=== PATIENT | male | born 1960 | race Caucasian/White ===

== ENCOUNTER → 2023-12-30 11:06 | Outpatient (REF) | payer OTHER, SELFPAY | LOC: HWRAD 11:06 | PROVIDERS: ATTENDING PHYSICIAN Orthopaedic Surgery; FAMILY PHYSICIAN Family Medicine | DX: M25.571 Pain in right ankle and joints of right foot (principal); M79.671 Pain in right foot | CPT/HCPCS: 73700 ==

== ENCOUNTER → 2024-01-20 15:43 | Outpatient (REF) | payer OTHER, SELFPAY | LOC: PAVMRI 15:43 | PROVIDERS: ATTENDING PHYSICIAN Student in an Organized Health Care Education/Training Program; FAMILY PHYSICIAN Family Medicine | DX: M25.571 Pain in right ankle and joints of right foot (principal) | CPT/HCPCS: 73721 ==

== ENCOUNTER → 2024-04-27 13:01 | Outpatient (REF) | payer OTHER, SELFPAY | LOC: RCS 13:01 | PROVIDERS: ATTENDING PHYSICIAN Physician Assistant | DX: R53.83 Other fatigue (principal); R42 Dizziness and giddiness; Z68.29 Body mass index [BMI] 29.0-29.9, adult; E78.2 Mixed hyperlipidemia | CPT/HCPCS: 93017; 93350 ==

== ENCOUNTER 2024-05-08 06:30 | Day surgery (SDC) | payer OTHER, SELFPAY ==
[2024-04-25 08:18] VITALS: BMI 29.4
[2024-04-25 09:56] LABS: Blood Urea Nitrogen 11 mg/dl (9-20); Calcium 10.2 mg/dl (8.4-10.2); Carbon Dioxide 26 mmol/L (22-30); Chloride 101 mmol/L (98-107); Estimated Creatinine Clearance 100 ml/min; Glucose 92 mg/dl (70-99); Potassium 4.1 mmol/L (3.5-5.1); Sodium 136 mmol/L (135-145); eGFR > 60.00
[2024-04-25 09:59] LABS: Hematocrit 43.1 % (39.0-52.0); Hemoglobin 14.8 g/dL (13.0-18.0); Mean Corp Hgb Conc. 34.3 g/dL (33.0-37.0); Mean Corpuscular Hgb 30.8 pg (27.0-31.0); Mean Corpuscular Volume 89.6 fL (80.0-94.0); Mean Platelet Volume 9.6 fL (7.4-10.4); Platelet Count 197 10^3/uL (130-400); Red Blood Cell Count 4.81 10^6/uL (4.70-6.10); Red Cell Dist. Width 12.4 % (11.5-14.5); White Blood Cell Count 5.2 10^3/uL (4.8-10.8)
[2024-05-08] VITALS (12 sets, daily range): BP systolic 131–140; BP diastolic 75–90; BMI 29.4
[2024-05-08] MEDS: NORMOSOL-R/PLASMALYTE-A 1000 IV (09:48)
[2024-05-08] MEDS: TYLENOL 1000 MG PO (09:51)
[2024-05-08] MEDS: CELEBREX 200 MG PO (09:51)
[2024-05-08] MEDS: DILAUDID 0.25 MG IV ×2 (14:07→14:21)
[2024-05-08] MEDS: TYLENOL 650 MG PO (15:54)
[2024-05-08] MEDS: ROXICODONE 5 MG PO (15:54)
== END 2024-05-08 16:10 | disposition home or self-care (01) ==
LOC: SDS 06:30
PROVIDERS: ATTENDING PHYSICIAN Student in an Organized Health Care Education/Training Program; FAMILY PHYSICIAN Family Medicine
DX: M67.01 Short Achilles tendon (acquired), right ankle (principal); M89.8X9 Other specified disorders of bone, unspecified site; D16.31 Benign neoplasm of short bones of right lower limb; M76.71 Peroneal tendinitis, right leg
CPT/HCPCS: 27691; 27659; 28120; 36415; 80048; 85027; 93005

== ENCOUNTER → 2024-10-27 16:15 | Outpatient (REF) | payer OTHER, SELFPAY | LOC: RAD 16:15 | PROVIDERS: ATTENDING PHYSICIAN Nurse Practitioner Family | DX: R10.9 Unspecified abdominal pain (principal) | CPT/HCPCS: 74176 ==

== ENCOUNTER → 2025-04-17 10:54 | Outpatient (REF) | payer OTHER, SELFPAY | LOC: HWRAD 10:54 | PROVIDERS: ATTENDING PHYSICIAN Nurse Practitioner Family | DX: N28.89 Other specified disorders of kidney and ureter (principal) | CPT/HCPCS: 76770 ==

== ENCOUNTER → 2025-05-21 11:18 | Outpatient (REF) | payer OTHER, SELFPAY | LOC: RAD 11:18 | PROVIDERS: ATTENDING PHYSICIAN Physician Assistant | DX: R05.1 Acute cough (principal); J98.6 Disorders of diaphragm | CPT/HCPCS: 71046 ==